=== PATIENT | male | born 1935 | race African-American/Black ===

== ENCOUNTER 2019-05-07 02:03 | Outpatient (CLI) | payer OTHER ==
--- NOTE | 2019-05-07 10:45 | Diagnostic Imaging Report ---
Indications: Dizziness and vertigo Technique: Spiral acquisitions obtained through the brain. Angled axial and coronal 5 x 5 mm slices were reconstructed. Total dose length product 1329.85 mGycm. CTDI vol(s) 70.38 mGy. Dose reduction achieved using automated exposure control Comparison: None. Findings: No acute intracranial hemorrhage or edema. No mass effect or midline shift. Mildly prominent ventricles and extra-axial CSF spaces. Minimal periventricular deep white matter low-attenuation consistent with chronic microvascular ischemic change. There is evidence of prior cataract surgery on the right. Normal woodward-white differentiation. There is evidence of prior bilateral sinus surgery. There is ethmoid sinus mucosal disease. The mastoids are clear. Impression: Mild age-related volume loss and minimal periventricular deep white matter chronic ischemic changes. Negative for acute intracranial bleed or mass effect This agrees with the preliminary interpretation provided overnight by [facility]. The CT scanner at [facility] is accredited by the [employer] and the scans are performed using protocols designed to limit radiation exposure to as low as reasonably achievable to attain images of sufficient resolution adequate for diagnostic evaluation.
== END 2019-05-07 04:03 | disposition home or self-care (01) ==
LOC: RAD 02:03
DX: R42 Dizziness and giddiness (principal); J32.2 Chronic ethmoidal sinusitis
CPT/HCPCS: 70450